=== PATIENT | male | born 1985 | race Caucasian/White ===

== ENCOUNTER 2025-02-20 12:41 | Emergency (ER) | payer MEDICAID, SELFPAY ==
[2025-02-20 12:41] VITALS: BP 152/74; PULSE 91; RESP 18; TEMP 36.6; O2SAT 94
[2025-02-20 13:01] VITALS: BP 152/74; PULSE 91; RESP 18; TEMP 36.6; O2SAT 94
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
[2025-02-20 13:32] VITALS: BP 148/87; PULSE 72
[2025-02-20 13:33] VITALS: PULSE 77; O2SAT 95
[2025-02-20 13:39] LABS: Abs Immature Grans 0.01 10^3/uL (0.0-0.06); HCT 41.1 % (40.0-50.0); HGB 14.0 g/dL (13.5-17.5); Immature Grans % 0.1 %; MCH 29.2 pg (27.0-33.0); MCHC 34.1 % (32.0-36.0); MCV 86 fL (80-95); MPV 11.1 fL (8.0-11.0); Platelet Count 217 10^3/uL (130-400); RBC 4.80 10^6/uL (4.36-5.78); RDW 12.7 % (11.8-14.1); RDW-SD 39.5 fL; WBC 7.79 10^3/uL (4.4-10.8)
[2025-02-20] MEDS: Lactated Ringers 1,000 ML 1000 ML IV (13:40)
[2025-02-20 13:59] LABS: ALT 27 U/L (10-49); AST 37 U/L (<34); Albumin 4.7 g/dL (3.2-5.0); Alkaline Phosphatase 84 U/L (46-116); Anion Gap 9 mmol/L (3-11); BUN 14 mg/dL (9-23); Bilirubin, Total 0.30 mg/dL (0.2-1.2); CO2 23.0 mmol/L (20.0-31.0); Calcium 8.2 mg/dL (8.3-10.6); Chloride 113 mmol/L (98-107); Glucose 92 mg/dL (74-106); Potassium 4.0 mmol/L (3.5-5.1); Sodium 145 mmol/L (136-145); Total Protein 8.1 g/dL (5.7-8.2)
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
[2025-02-20] MEDS: Ibuprofen 400 MG TAB PO (14:53)
== END 2025-02-20 15:40 | disposition home or self-care (01) ==
LOC: ER 14:46
PROVIDERS: Emergency Provider Student in an Organized Health Care Education/Training Program
DX: S00.83XA Contusion of other part of head, initial encounter (principal); E86.0 Dehydration; Y04.8XXA Assault by other bodily force, initial encounter; M54.2 Cervicalgia
CPT/HCPCS: 80053; 86850; 86900; 86901; 96360; 99284; 70450; 70486; 72125; 80320; 85025; 99283